=== PATIENT | male | born 1945 | race Caucasian/White ===

== ENCOUNTER → 2020-02-24 09:17 | Outpatient (CLI) | payer MEDICARE, BC, SELFPAY ==
[2020-02-24 11:35] LABS: Add Manual Diff / Slide Review NO; Basophils Absolute Auto 0 /uL (0-100); Basophils Percent Auto 0.6 % (0-2); Eosinophils Absolute Auto 100 /uL (0-450); Eosinophils Percent Auto 2.5 % (2-4); Hematocrit 40.1 % (41-53); Hemoglobin 13.5 g/dL (13.5-17.5); Lymphocytes Absolute Auto 1800 /uL (1100-4500); Lymphocytes Percent Auto 31.2 % (25-40); Mean Corpuscular HGB Conc 33.7 % (30-36); Mean Corpuscular Hemoglobin 32.5 PG (26-34); Mean Corpuscular Volume 96.3 fL (80-100); Monocytes Absolute Auto 500 /uL (0-900); Monocytes Percent Auto 8.4 % (3-14); Neutrophils Absolute Auto 3200 /uL (1500-7000); Neutrophils Percent Auto 57.3 % (50-75); Platelet Count 280 X10^3/uL (150-400); Red Blood Cell Count 4.16 X10^6/uL (4.5-5.9); Red Cell Distribution Width 12.8 % (11.6-14.8); White Blood Cell Count 5.7 X10^3/uL (4.5-11.0)
[2020-02-24 11:50] LABS: BUN Creatinine Ratio 26.2 (6-22); Blood Urea Nitrogen 16 mg/dL (9-20); Calcium 9.6 mg/dL (8.4-10.2); Carbon Dioxide 27 mmol/L (22-32); Chloride 98 mmol/L (98-107); Estimated Glomerular Filt Rate > 60.0 mL/min (>60); Glucose 109 mg/dL (80-110); HEMOLYSIS < 15 (0-50); Potassium 4.5 mmol/L (3.4-5.1); Sodium 133 mmol/L (137-145)
[2020-02-24 11:57] LABS: Hemoglobin A1C% w Est Avg Glu 6.3 % (4.0-6.0)
== END ==
PROVIDERS: PCP Family Medicine; Referring Provider Orthopaedic Surgery; Visit Provider Orthopaedic Surgery
DX: Z01.818 Encounter for other preprocedural examination (principal); Z01.812 Encounter for preprocedural laboratory examination; R73.9 Hyperglycemia, unspecified
CPT/HCPCS: 36415; 80048; 83036; 85025; 93005

== ENCOUNTER → 2020-03-05 13:13 | Outpatient (CLI) | payer MEDICARE, BC, SELFPAY ==
[2020-03-07 10:04] LABS: COVID19 Sendout Not Detected (Not Detect)
== END ==
PROVIDERS: PCP Family Medicine; Visit Provider Nurse Practitioner
DX: Z11.59 Encounter for screening for other viral diseases (principal)
CPT/HCPCS: 87635

== ENCOUNTER 2020-03-08 10:08 | Day surgery (SDC) | payer MEDICARE, BC, SELFPAY ==
[2020-03-04 14:36] VITALS: BMI 34.4
[2020-03-08 10:46] VITALS: BMI 33.5
[2020-03-08 10:50] VITALS: BP 138/82; PULSE 96; RESP 20; TEMP 37; O2SAT 98
[2020-03-08] MEDS: LACTATED RINGERS 1,000 ML 42 ML IV ×2 (11:17→13:23)
--- NOTE | 2020-03-08 12:18 | PM.PREOP ---
Pre-operative Note COVID-19 COVID-19 status: Negative Result date/Date tested (Pos, Neg/Pending): 03/05/20 Interval Note History & Physical reviewed/Exam performed by Physician: Yes Changes to H&P: No
[2020-03-08] MEDS: CEFAZOLIN 2 GM/100 ML FROZ.PIGGY IV (13:00)
--- NOTE | 2020-03-08 13:05 | P.OP_ITS ---
Operative Date/Time/Diagnoses Date of procedure: 03/08/20 Time of procedure: 14:19 Pre-op diagnosis: Lumbar disc herniation with radiculopathy Post-op diagnosis: same Procedure & Clinicians Procedure: Left-sided L4-5 laminectomy and diskectomy Use of microscope Placement of epidural catheter Same procedure as scheduled: Yes Indications: [age] year old male with intractable pain and weakness from lumbar disc herniation and stenosis. They had failed conservative management and requested operative intervention. Risks and benefits of surgery were discussed and appropriate consents were obtained. Surgeon: Theron Fermin Director Clinical Information Services: Isamar Paula Anesthesia Type: General Operative Notes Findings: None Closure Type: primary Specimen(s): none sent Estimated Blood Loss (mL): 10 Procedure in detail: Patient was brought to the operating room and intubated on the table. A time-out was performed. There were rolled over the well-padded prone position on the Collin table. The back was prepped and draped in standard sterile fashion. Preoperative antibiotics were given. Using fluoroscopy, a 3 cm incision was made to the well-marked left of the midline at the L4-5 level. We used Bovie to come down to and split the fascia. We then used the NuVasive MaXcess dilators with fluoroscopy and then opened our retractors. The soft tissue was cleared off with Bovie, a marker was placed, an x-ray was taken to confirm positioning. We then brought in the microscope. A combination of high-speed bur and Kerrison were used to perform a left-sided laminotomy and hemifacetectomy. We had to work through the thickened ligamentum flavum and go to the midline. We depressed the dura and reach across and removed more ligamentum from the opposite side to decompress the canal. We carefully retracted the dura and expose the extruded disc. This was cleared with bipolar. A scalpel used to perform an annulotomy and a pituitary was used to perform the diskectomy. This was primarily loose fragments in the extruded section. The ball probe was swept underneath the dura along the disc to make sure there were no further loose fragments. This was also placed into the disc and moved around to make sure there were no further loose fragments. Once everything was adequately decompressed, the wound was copiously irrigated. An epidural catheter was filled with 100 mcg of fentanyl and 8 mL of 0.25% Marcaine. The dura was carefully depressed under the laminotomy site and the catheter was advanced 6 cm cephalad. The retractor was removed and the fascia was closed. The epidural catheter was then injected without resistance and removed. Vancomycin powder was placed in the wound. Superficial and skin were closed. Sterile dressing was placed. The patient was then rolled over, transferred to the stretcher, and brought to recovery room without complications. Complications: none Post-operative Condition: stable Disposition: PACU Plan for aftercare: Outpatient. Limited bending, twisting, lifting. Follow-up in 2 weeks and start activity as tolerated at that point.
[2020-03-08] MEDS: SODIUM CHLORIDE 0.9% 1,000 ML, GENTAMICIN 80 MG IRR (13:28)
[2020-03-08] MEDS: THROMBIN (RECOMBINANT) 5,000 UNIT VIAL 5000 UNIT TOP (13:28)
[2020-03-08] MEDS: BUPIVACAINE 0.25% (PF) 8 ML, fentaNYL 100 MCG INJ (13:29)
--- NOTE | 2020-03-08 13:32 | SUR.OPER ---
Prone on spine table, head in foam head support, padded chest and pelvic supports, gel pad at knees, lower legs supported by pillows; nipples, genitalia and toes free of pressure, arms secured on foam padded arm boards at <90 degrees abduction. Tape over blanket at thigh secured to table.
[2020-03-08 14:29] VITALS: BP 137/70; PULSE 87; RESP 12; TEMP 37; O2SAT 98
[2020-03-08 14:35] VITALS: BP 109/58; PULSE 86; RESP 19; TEMP 36.8; O2SAT 96
[2020-03-08 14:38] VITALS: BP 116/59; PULSE 85; RESP 9; TEMP 36.8; O2SAT 96
[2020-03-08 14:43] VITALS: BP 109/59; PULSE 84; RESP 13; TEMP 36.7; O2SAT 97
[2020-03-08 15:08] VITALS: BP 115/63; PULSE 85; RESP 16; TEMP 36.6; O2SAT 99
[2020-03-08] MEDS: OXYCODONE/ACETAMINOPHEN 5/325 TABLET 1 TAB PO (15:15)
== END 2020-03-08 15:32 | disposition home or self-care (01) ==
PROVIDERS: PCP Family Medicine; Referring Provider Orthopaedic Surgery; Visit Provider Orthopaedic Surgery
PROC: (CPT 63030; principal; 2020-03-08 11:45)
DX: M51.16 Intervertebral disc disorders with radiculopathy, lumbar region (principal); M48.062 Spinal stenosis, lumbar region with neurogenic claudication; S39.012A Strain of muscle, fascia and tendon of lower back, initial encounter; M21.372 Foot drop, left foot; E11.9 Type 2 diabetes mellitus without complications; Z79.84 Long term (current) use of oral hypoglycemic drugs; E66.9 Obesity, unspecified; Z68.34 Body mass index [BMI] 34.0-34.9, adult
CPT/HCPCS: 63030; J0690; J1100; J1885; J2250; J2405; J2704; J3010